=== PATIENT | female | born 1950 | race Two or more races ===

== ENCOUNTER 2025-05-01 21:36 | Inpatient (IN) | payer MEDICARE, OTHER ==
[~2025-05-01] VITALS: Ht 165.1 cm; Wt 51.0 kg
[2025-05-01 21:36] VITALS: BP 189/97
[2025-05-01] MEDS ORDERED: MEGE400O5 PO (21:54)
[2025-05-01] MEDS ORDERED: MAGN400O6 PO (21:54)
[2025-05-01] MEDS ORDERED: POLY17PO4 PO (21:54)
[2025-05-01] MEDS ORDERED: ASCO500C18 PO (21:54)
[2025-05-01] MEDS ORDERED: METO25TA6 PO (21:54)
[2025-05-01] MEDS ORDERED: BISA10SU61 RC (21:54)
[2025-05-01] MEDS ORDERED: AMIN30LI2 PO (21:54)
[2025-05-01] MEDS ORDERED: DOCU-141 PO (21:54)
[2025-05-01] MEDS ORDERED: FAMO20TA8 PO (21:54)
[2025-05-01] MEDS ORDERED: MULT-1045 PO (21:54)
[2025-05-01 22:47] LABS: PLATELET COUNT (AUTO) 267 K/uL (179-408); RED BLOOD CELL COUNT(AUTO) 4.67 MIL/uL (3.63-4.92); RED CELL DISTRIBUTION WIDTH 15.2 % (12.3-17.7); WHITE BLOOD COUNT (AUTO) 5.5 K/uL (3.8-11.8)
[2025-05-01 22:54] LABS: CREATININE 0.7 mg/dL (0.6-1.3); SODIUM SERUM 144 mmol/L (136-145); UREA NITROGEN, BLOOD 23 mg/dL (7-18)
[2025-05-01] MEDS: IV NS 1000 ML 1,000 ML IV ONE (22:55)
[2025-05-01 22:59] LABS: ASPARTATE AMINOTRANSFERASE 11 U/L (15-37); TOTAL PROTEIN, SERUM 7.1 g/dL (6.4-8.2)
[2025-05-02] MEDS ORDERED: ONDANSETRON 4 MG/2 ML VIAL IV PRN (03:00)
[2025-05-02] MEDS ORDERED: MAGNESIUM HYDROXIDE 30 ML LIQUID UDC PO PRN (03:00)
[2025-05-02] MEDS ORDERED: BISACODYL 10 MG SUPP.RECT RC PRN (03:00)
[2025-05-02] MEDS ORDERED: ACETAMINOPHEN 325 MG TABLET PO PRN (03:00)
[2025-05-02] MEDS ORDERED: REMEDY ESSENTIAL ZINC PASTE 113 GM TP PRN (03:00)
[2025-05-02] MEDS: IV NS 1000 ML 1,000 ML IV PRN (03:49)
[2025-05-02] MEDS: ENOXAPARIN SODIUM 40 MG/0.4 ML DISP.SYRIN SQ SCH (03:57)
[2025-05-02 04:00] VITALS: BP 175/92; TEMP 98; O2SAT 96
[2025-05-02] MEDS: PANTOPRAZOLE SODIUM 40 MG TABLET.DR PO SCH (06:01)
[2025-05-02 07:36] LABS: CREATININE 0.4 mg/dL (0.6-1.3); SODIUM SERUM 140 mmol/L (136-145); UREA NITROGEN, BLOOD 15 mg/dL (7-18)
[2025-05-02] MEDS ORDERED: MEGESTROL ACETATE 400 MG/10 ML LIQUID UDC PO SCH (09:00)
[2025-05-02] MEDS: ASCORBIC ACID 500 MG TABLET PO SCH (09:18)
[2025-05-02] MEDS: MULTIVITAMINS,THERAPEUTIC TABLET PO SCH (09:18)
[2025-05-02] MEDS: DOCUSATE SODIUM 100 MG CAPSULE PO SCH (09:18)
[2025-05-02 09:22] VITALS: BP 173/99
[2025-05-02] MEDS: METOPROLOL TARTRATE 25 MG TABLET PO SCH (09:23)
[2025-05-02 11:19] LABS: *BILIRUBIN,URIN NEGATIVE (NEGATIVE); *BLOOD, URINE 1+ (NEGATIVE); *CLARITY,URINE CLEAR (CLEAR); *COLOR,URINE YELLOW (YELLOW); *KETONES,URINE NEGATIVE (NEGATIVE); *PROTEIN,URINE NEGATIVE (NEGATIVE); *UROBILINOGEN,URINE 0.2 E.U./dl (NORMAL); LEUKOCYTE ESTERASE ,URINE 2+ (NEGATIVE); NITRITE, URINE NEGATIVE (NEGATIVE); UGLUCOSE NEGATIVE (NEGATIVE)
[2025-05-02] MEDS: MEGESTROL ACETATE 400 MG/10 ML LIQUID UDC PO SCH (11:29)
[2025-05-02 11:38] LABS: SQUAMOUS EPITHELIAL CELL,UR FEW /HPF (NONE SEEN)
[2025-05-02 11:59] VITALS: BP 168/93; TEMP 97.6; O2SAT 99
[2025-05-02] MEDS: PROTEIN SUPPLEMENT (PROSTAT) 30 ML LIQUID PO SCH (13:45)
[2025-05-02 16:25] VITALS: BP 165/69; TEMP 97.6; O2SAT 100
[2025-05-03 04:00] VITALS: BP 195/83; TEMP 98; O2SAT 99
[2025-05-03 06:42] LABS: PLATELET COUNT (AUTO) 282 K/uL (179-408); RED BLOOD CELL COUNT(AUTO) 4.69 MIL/uL (3.63-4.92); RED CELL DISTRIBUTION WIDTH 14.9 % (12.3-17.7); WHITE BLOOD COUNT (AUTO) 6.5 K/uL (3.8-11.8)
[2025-05-03 06:58] LABS: CREATININE 0.6 mg/dL (0.6-1.3); SODIUM SERUM 141 mmol/L (136-145); UREA NITROGEN, BLOOD 13 mg/dL (7-18)
[2025-05-03 08:00] VITALS: BP 167/92; TEMP 97.7; O2SAT 96
[2025-05-03] MEDS ORDERED: OLANZAPINE ZYDIS 5 MG TAB.RAPDIS PO PRN (10:00)
[2025-05-03 11:37] VITALS: BP 141/76; TEMP 97.9; O2SAT 95
[2025-05-03 15:54] VITALS: BP 131/66; TEMP 97.6; O2SAT 97
[2025-05-03 19:22] VITALS: BP 145/79; TEMP 98.7; O2SAT 94
[2025-05-03] MEDS: LORAZEPAM 1 MG TABLET PO PRN (21:15)
[2025-05-04 05:07] VITALS: BP 185/101; TEMP 98.5; O2SAT 95
[2025-05-04 06:34] VITALS: BP 158/74; TEMP 98.4; O2SAT 95
[2025-05-04 07:12] LABS: PLATELET COUNT (AUTO) 266 K/uL (179-408); RED BLOOD CELL COUNT(AUTO) 4.35 MIL/uL (3.63-4.92); RED CELL DISTRIBUTION WIDTH 15.3 % (12.3-17.7); WHITE BLOOD COUNT (AUTO) 6.2 K/uL (3.8-11.8)
[2025-05-04 07:22] LABS: CREATININE 0.6 mg/dL (0.6-1.3); SODIUM SERUM 141 mmol/L (136-145); UREA NITROGEN, BLOOD 18 mg/dL (7-18)
[2025-05-04 08:00] VITALS: BP 169/86; TEMP 98.1; O2SAT 100
[2025-05-04] MEDS: DOCUSATE SODIUM 100 MG/10 ML LIQUID UDC PO SCH (08:26)
[2025-05-04 11:20] VITALS: BP 150/71; TEMP 97.8; O2SAT 98
[2025-05-04 16:15] VITALS: BP 149/69; TEMP 97.5; O2SAT 94
[2025-05-04 19:10] VITALS: BP 146/68; TEMP 97.8; O2SAT 95
[2025-05-05 06:56] VITALS: BP 146/80; TEMP 97.7; TEMP 98.6; O2SAT 90; O2SAT 98
[2025-05-05 07:27] LABS: PLATELET COUNT (AUTO) 258 K/uL (179-408); RED BLOOD CELL COUNT(AUTO) 4.36 MIL/uL (3.63-4.92); RED CELL DISTRIBUTION WIDTH 15.3 % (12.3-17.7); WHITE BLOOD COUNT (AUTO) 6.2 K/uL (3.8-11.8)
[2025-05-05 07:40] LABS: CREATININE 0.6 mg/dL (0.6-1.3); SODIUM SERUM 142 mmol/L (136-145); UREA NITROGEN, BLOOD 17 mg/dL (7-18)
[2025-05-05] MEDS ORDERED: CEPH500C2 PO (09:14)
[2025-05-05] MEDS ORDERED: OLAN5TAB6 PO (09:14)
[2025-05-05 11:31] VITALS: BP 157/84; TEMP 97.1; O2SAT 99
== END 2025-05-05 12:00 | DRG 689 ==
LOC: ER 21:36 → MEDSURG3 05-02 02:50
PROVIDERS: ADMIT Registered Nurse Psychiatric/Mental Health; ATTEND Nurse Practitioner Family
DX: N39.0 Urinary tract infection, site not specified (principal); R53.2 Functional quadriplegia; Z68.1 Body mass index [BMI] 19.9 or less, adult; D68.59 Other primary thrombophilia; E44.1 Mild protein-calorie malnutrition; F02.82 Dementia in other diseases classified elsewhere, unspecified severity, with psychotic disturbance; F02.84 Dementia in other diseases classified elsewhere, unspecified severity, with anxiety; F02.811 Dementia in other diseases classified elsewhere, unspecified severity, with agitation; E86.0 Dehydration; R62.7 Adult failure to thrive; E88.09 Other disorders of plasma-protein metabolism, not elsewhere classified; E78.5 Hyperlipidemia, unspecified; F20.9 Schizophrenia, unspecified; I25.10 Atherosclerotic heart disease of native coronary artery without angina pectoris; G30.9 Alzheimer's disease, unspecified; I73.9 Peripheral vascular disease, unspecified; Z79.899 Other long term (current) drug therapy; M15.9 Polyosteoarthritis, unspecified; E83.41 Hypermagnesemia
CPT/HCPCS: 36415; 71045; 83735; 84100; 84484; 85025; 87040; 87077; 87086; 93307; A4663; G0378; J0360; J0696; J1650; J7040; J8999